=== PATIENT | male | born 1960 | race Caucasian/White ===

== ENCOUNTER → 2016-05-28 | Day surgery (SDC) | payer OTHER ==
[~2016-05-28] MED LIST: 1-ME1LIQ PO; BUPIVACAINE/EPINEPHRINE 0.5% 50 ML VIAL ONE; CLINDAMYCIN PHOS 600 MG/4 ML VIAL ONE; KETOROLAC TROMETHAMINE 30 MG/ML (IVP) VIAL IV PUSH ONE; LACTATED RINGER'S 1000 ML INJ 1,000 ML ONE; LISI-357 PO; MIDAZOLAM HCL 2 MG/2 ML VIAL ONE; ONDANSETRON HCL 4 MG/2 ML VIAL IV PUSH ONE; PROPOFOL 200 MG/20 ML AMP IV ONE; SODIUM CHLORIDE 0.9% 100 ML ADDBAG IV ONE; ST J81CH PO; TRIAMCINOLONE ACETONIDE 40 MG/ML VIAL ONE; VANCOMYCIN HCL 1000 MG VIAL ONE
--- NOTE | 2016-05-28 11:12 | MP ---
cc: XAVI MILLER DATE OF SURGERY May 28, 2016 PREOPERATIVE DIAGNOSIS Right knee medial meniscus tear. POSTOPERATIVE DIAGNOSIS Right knee medial meniscus tear. PROCEDURE Right knee arthroscopic partial medial meniscectomy. SURGEON Dr. Xavi Miller ANESTHESIA General. ESTIMATED BLOOD LOSS Less than 10 cc. TOURNIQUET TIME 0 minutes. COMPLICATIONS None. JUSTIFICATION The patient is a 55-year male who injured the right knee and has had persistence of the pain in regards to his condition and failure of conservative treatments. Clinical exam as well as MRI confirmed the above-named findings. The patient was counseled as to his risks, benefits and alternatives and to the above-named proposed surgical procedure. He did wish to proceed with surgery. PROCEDURE IN DETAIL Written consent was obtained. The patient was identified by name, taken to the operating room, placed supine on the operating room table. General anesthesia was administered as well as 600 mg of IV clindamycin and 1 gram of IV vancomycin as he does have PENICILLIN ALLERGY. The right thigh was carefully placed in a well-padded leg coleman, the right lower extremity prepped and draped using as isopropyl alcohol, Hibiclens solution and DuraPrep solution. A standard medial and lateral parapatellar arthroscopic portal were established. 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 The medial compartment revealed a focal area of unstable, grade 2 chondromalacia along the midportion of the medial femoral condyle and also a tear of the posterior horn of the medial meniscus. An arthroscopic shaver was then introduced into the medial compartment to perform a partial medial meniscectomy. The meniscal rim was probed and noted to be stable after the mensicectomy. The shaver was also used to perform a gentle chondroplasty along the medial femoral condyle to stabilize the articular fragmentation. The intercondylar notch revealed anterior and posterior cruciate ligaments to be intact. The lateral compartment was relatively free of meniscal pathology and chondromalacia. At the conclusion of the surgical procedure, 30 cc of 0.5% Marcaine with epinephrine mixed with 40 mg of Kenalog was injected into the knee joint. The arthroscopic portals were closed with 3-0 Prolene suture. Sterile dressings were applied. The patient tolerated the procedure well, no intraoperative complications noted. MD SARAH Silva/QUIQUE /10:23 AM /10:56 AM
== END | disposition home or self-care (01) ==
LOC: ESDC 08:32
PROVIDERS: ATTEND Orthopaedic Surgery Sports Medicine
DX: S83.241A Other tear of medial meniscus, current injury, right knee, initial encounter (principal); M22.41 Chondromalacia patellae, right knee
CPT/HCPCS: 01400; 29881; J1885; J2250; J2405; J3010; J3301; J3370; J7120